=== PATIENT | female | born 1955 | race Caucasian/White ===

== ENCOUNTER 2019-04-04 12:45 | Observation (INO) ==
[2019-04-04] MEDS ORDERED: ZOFRAN IV PRN (13:09)
[2019-04-04] MEDS ORDERED: TYLENOL PO PRN (13:09)
[2019-04-04] MEDS ORDERED: DESYREL PO PRN (13:09)
[2019-04-04] MEDS: DUONEB (A & A) INH SCH ×3 (13:25→21:49)
--- NOTE | 2019-04-04 13:43 | HISTORY AND PHYSICAL ---
CHIEF COMPLAINT: Cough and shortness of breath. HISTORY OF PRESENT ILLNESS: Ms. Renata Ulrich is a 63-year-old lady with a history of mild intermittent asthma, mixed hyperlipidemia., allergic rhinitis and osteoporosis, who is well known to me. She presented to the office with a 1-week history of a persistent nonproductive cough, pleuritic chest pain worse with deep inspiration and paroxysms of cough, increasing shortness of breath, increasing work of breathing, and diffuse wheezing. She denies any fever, chills, nausea or vomiting. She has been using her rescue inhaler 3 or 4 times on a daily basis. PAST MEDICAL HISTORY: As above. PAST SURGICAL HISTORY: Tubal ligation. ALLERGIES: Z-Domo. FAMILY HISTORY: Her father had hypertension, coronary artery disease status post GA and stroke syndrome. Her mother had cervical cancer. MEDICATIONS: Simvastatin 20 mg at bedtime, Singulair 10 mg daily, ProAir 2 puffs q.6 hours p.r.n. shortness of breath, fexofenadine 180 mg daily. SOCIAL HISTORY: She denies the use of tobacco, alcohol, or illicit drugs. She is and lives with her spouse. REVIEW OF SYSTEMS: Constitutional: She denies any recent weight gain or weight loss. HEENT: She wears glasses. Cardiovascular: No chest pain, palpitations, or anginal equivalents. Pulmonary: See history of present illness. Gastrointestinal: No reflux, dysphagia, melena, hematochezia, change in bowel habits, or rectal bleeding. Endocrine: No polyuria, no polydipsia. No cold or heat intolerance. Skin: No easy bruisability. Genitourinary: No leakage of urine with coughing or laughing. Neurologic: No migraines or seizures. Psychiatric: No history of depression. PHYSICAL EXAMINATION: GENERAL: This is an acutely ill-appearing 63-year-old lady in mild distress secondary to shortness of breath. VITAL SIGNS: Temperature 98.6 degrees, blood pressure 120/70, pulse 67, respiratory rate 22. HEENT: Fundi with sharp discs and vessels. Pupils equal, round, reactive to light. Extraocular eye movements intact. TMs without bullae. NECK: Supple. No masses, JVD or bruits. CARDIOVASCULAR: Regular rate and rhythm. LUNGS: Diffuse end-expiratory wheezing with forced expiration. There is poor air movement. ABDOMEN: Soft, nontender, with active bowel sounds. No hepatosplenomegaly. No abdominal bruits. EXTREMITIES: Without edema. SKIN: No palpable purpura. NEUROLOGIC: Nonfocal. ASSESSMENT AND PLAN: 1. Mild intermittent asthma with acute exacerbation. I am going to admit Ms. Ulrich to [facility]. I will treat her with supplemental O2, DuoNeb nebulizer treatments q.6 hours, methylprednisolone 80 mg IV q.8 hours and begin Rocephin 1 g IV daily. I will check a CBC with differential, BMP as well as a PA and lateral chest x-ray. She had the Prevnar vaccination on 09/01/2017. She has had the Pneumovax on 04/28/2015. We will continue Singulair 10 mg daily but will hold the ProAir HFA inhaler. 2. Mixed hyperlipidemia. We will continue simvastatin 20 mg at bedtime. 3. She has had persistent outpatient symptoms for nearly a week without improvement with routine medications. I believe that admission to the hospital for more aggressive management of the underlying asthma exacerbation is indicated. At this point in time, I anticipate that she will be in the hospital for at least 1 midnight and I will therefore place her in outpatient status with observation services. I will begin Lovenox 40 mg subcutaneously daily for DVT prophylaxis. cc: Krystin Pringle MD
[2019-04-04 14:06] LABS: BASO# 0.02 X1000 (0.0-0.2); BASO% 0.3 % (0.0-0.8); EOS# 0.43 X1000 (0.0-0.7); EOS% 5.9 % (0.0-10.0); HEMATOCRIT 36.5 % (37.0-47.0); HEMOGLOBIN 12.8 g/dL (12.0-16.0); LYMPH# 1.96 X1000 (1.2-3.4); LYMPH% 26.8 % (20.5-51.1); MCH 28.8 PG (27-31); MCHC 35.1 g/dL (33-37); MCV 82.2 FL (81-99); MONO# 0.56 X1000 (0.11-0.59); MONO% 7.7 % (1.7-9.3); MPV 11.3 FL (7.4-10.4); NEUT# 4.33 X1000 (1.4-6.5); NEUT% 59.3 % (42.2-75.2); PLT 201 X1000 (130-400); RBC 4.44 XMIL (4.2-5.4); RDW 13.3 % (11.5-14.5)
--- NOTE | 2019-04-04 14:25 | Diag Imaging Result Doc PS360 ---
EXAM: CHEST-2 VIEWS 04/04/2019 HISTORY: asthma exacerbation TECHNIQUE: PA and lateral chest COMMENT: There are some linear opacities in the lung bases which were also apparently present on 04/15/2016 and are presumably due to fibrosis. The heart size and pulmonary vascularity are within normal limits. There is no evidence of acute pulmonary disease. IMPRESSION: Stable chest. Electronically signed by Cory Purcell 04/04/2019 2:22 PM
[2019-04-04 14:45] LABS: AGAP 14; BUN 6 mg/dL (8-22); CALCIUM 9.5 mg/dL (8.8-10.2); CHLORIDE 105 mmol/L (98-107); COSMO 280; CREATININE 0.6 mg/dL (0.5-0.9); ESTIMATED GFR > 60; GLUCOSE 86 mg/dL (70-104); POTASSIUM 3.7 mmol/L (3.5-5.1); SODIUM 142 mmol/L (136-145); TCO2 23 mmol/L (25-35)
[2019-04-04] MEDS: SOLU-MEDROL IV SCH ×2 (14:51→21:29)
[2019-04-04] MEDS: LOVENOX SUBQ SCH (14:51)
[2019-04-04] MEDS: ROCEPHIN 1 GM in NS 50 ML IV SCH (14:58)
[2019-04-04] MEDS: NS 1,000 ML IV SCH (15:01)
[2019-04-04] MEDS: ZOCOR PO SCH (21:26)
[2019-04-05] MEDS: DUONEB (A & A) INH SCH ×4 (03:35→21:27)
[2019-04-05] MEDS: SOLU-MEDROL IV SCH ×3 (05:33→21:19)
--- NOTE | 2019-04-05 08:55 | PROGRESS NOTE ---
DATE: 04/05/2019 SUBJECTIVE: Ms. Ulrich was admitted to [facility] with an acute asthma exacerbation with tracheobronchitis. She continues with a persistent cough, which is productive of clear to yellowish sputum, mild pleuritic chest pain and wheezing. Her O2 saturations are ranging from 96% to 97% on 2 L of O2. She denies any nausea or vomiting. OBJECTIVE: Vital Signs: Temperature 98.1 degrees, pulse 77, respirations 15, BP 115/85. CV: Regular rate and rhythm. Lungs: Improved air movement, but still has end-expiratory wheezing with forced expiration in the lower and upper lung moore. Abdomen: Soft, nontender, with active bowel sounds. Extremities: Without edema. ASSESSMENT AND PLAN: Acute asthma exacerbation with tracheobronchitis. Clinically, she has improved since admission. We will continue supplemental oxygen, nebulizer treatments, intravenous Solu-Medrol and Rocephin. I will check a posterior/anterior and lateral chest x-ray today. cc: Krystin Pringle MD
[2019-04-05] MEDS: SINGULAIR PO SCH ×2 (09:06→09:08)
[2019-04-05] MEDS: NS 1,000 ML IV SCH ×2 (09:08→22:22)
--- NOTE | 2019-04-05 09:23 | Diag Imaging Result Doc PS360 ---
CHEST-2 VIEWS - 04/05/2019 INDICATION: asthma exacerbation COMPARISON: 04/04/2019 FINDINGS: There is some persistent linear atelectasis in the left lower lobe. No new infiltrates. Heart size and pulmonary vascularity is normal. No pneumothorax or pleural effusion. IMPRESSION: No change from prior. Electronically signed by Arnaldo Aldridge 04/05/2019 9:21 AM
[2019-04-05] MEDS: LOVENOX SUBQ SCH (14:33)
[2019-04-05] MEDS: ROCEPHIN 1 GM in NS 50 ML IV SCH (14:33)
[2019-04-05] MEDS ORDERED: SINGULAIR PO SCH (21:00)
[2019-04-05] MEDS: ZOCOR PO SCH (21:19)
[2019-04-06] MEDS: DUONEB (A & A) INH SCH (03:40)
[2019-04-06] MEDS: SOLU-MEDROL IV SCH (04:32)
[2019-04-06 07:58] VITALS: BP 132/68
[2019-04-06] MEDS ORDERED: PNEUMOVAX 23 IM ONE (08:23)
[2019-04-06] MEDS ORDERED: LEVAQUIN PO SCH (09:00)
--- NOTE | 2019-04-06 14:01 | DISCHARGE SUMMARY ---
ADMISSION DATE: 04/04/2019 DISCHARGE DATE: 04/06/2019 DISCHARGE DIAGNOSES: 1. Mild intermittent asthma with acute exacerbation. 2. Acute bronchitis. 3. Mixed hyperlipidemia. DISCHARGE INSTRUCTIONS: 1. Return to clinic in 2 weeks to see me, Dr. Chris Pringle. 2. Activity as tolerated. 3. Regular diet. 4. Medications. Levofloxacin 750 mg daily for 5 days, simvastatin 20 mg at bedtime, Singulair 10 mg daily, Proventil HFA inhaler 2 puffs q. 6 hours p.r.n. shortness of breath. DISCHARGE PHYSICAL EXAMINATION: This is a well-developed, well-nourished, very pleasant, 63-year- old lady in no apparent distress. She is afebrile. Pulse 76, respirations 18, BP 132/68. CV: Regular rate and rhythm. Lungs: Clear. Abdomen: Soft, nontender, with active bowel sounds. Mrs. Renata Ulrich was admitted to [facility] with an acute asthma exacerbation complicated by tracheobronchitis. We initially treated her with supplemental O2, DuoNeb nebulizer treatments, IV Solu-Medrol, and intravenous Rocephin. Her initial chest x-ray demonstrated evidence of fibrosis without infiltrates. A 2nd chest x-ray demonstrated no acute infiltrates. She responded clinically to aggressive medical therapy. She was gradually weaned off oxygen and steroids without regression of her symptoms. She was breathing comfortably and was maintaining O2 saturations of 97% to 98% on room air. She will continue Singulair 10 mg daily, Proventil MDI 2 puffs q. 6 hours p.r.n. shortness of breath, and complete a 5 day course of oral Levaquin. She has previously had the Prevnar vaccination in 2017 but was overdue for the Pneumovax. A Pneumovax vaccination was administered prior to discharge. Having reached maximum hospital benefit, the patient was discharged in stable condition. cc: Krystin Pringle MD
== END 2019-04-06 09:15 | disposition home or self-care (01) ==
LOC: DIRADM → EDIPHOLD 12:45 → 1N 18:15
PROVIDERS: ADMIT Internal Medicine; ATTEND Internal Medicine